=== PATIENT | male | born 1990 | race Asian ===

== ENCOUNTER 2021-04-30 20:42 | Emergency (ER) | payer OTHER ==
[~2021-04-30] VITALS: Ht 167.6 cm; Wt 59.3 kg
[2021-04-30] MEDS ORDERED: LIDOCAINE-MPF 2% ,5ML INFIL ONE (21:30)
--- NOTE | 2021-04-30 23:12 | NUR ---
PT TO ROOM FROM LOBBY
[2021-04-30 23:20] VITALS: BP 132/70
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
[2021-04-30] MEDS ORDERED: LIDOCAINE-MPF 1%, 5ML ONE (23:26)
--- NOTE | 2021-04-30 23:45 | NUR ---
PT RECEIVED STITCHES TO LAC ON FOREHEAD PER ERP
--- NOTE | 2021-05-01 00:11 | NUR ---
Patient given discharge instructions and they have confirmed that they understand the instructions. Patient ambulatory with steady gait.
== END 2021-05-01 00:13 | disposition home or self-care (01) ==
LOC: ED 05-01 00:07
DX: S01.81XA Laceration without foreign body of other part of head, initial encounter (principal); F17.200 Nicotine dependence, unspecified, uncomplicated; V47.5XXA Car driver injured in collision with fixed or stationary object in traffic accident, initial encounter; Y93.89 Activity, other specified; Y92.488 Other paved roadways as the place of occurrence of the external cause; Y99.8 Other external cause status
CPT/HCPCS: 12052; 70450; 72125; 99284

== ENCOUNTER 2021-05-07 11:15 | Emergency (ER) | payer SELFPAY ==
[~2021-05-07] VITALS: Ht 170.2 cm; Wt 58.8 kg
[2021-05-07 11:28] VITALS: BP 110/71
== END 2021-05-07 12:56 | disposition home or self-care (01) ==
LOC: ED 12:20
DX: S01.81XD Laceration without foreign body of other part of head, subsequent encounter (principal); X58.XXXD Exposure to other specified factors, subsequent encounter; F17.210 Nicotine dependence, cigarettes, uncomplicated
CPT/HCPCS: 99281